=== PATIENT | female | born 1995 | race African-American/Black ===

== ENCOUNTER 2017-12-10 22:15 | Emergency (ER) | payer SELFPAY ==
[~2017-12-10] VITALS: Ht 157.5 cm; Wt 104.5 kg
[2017-12-10 22:18] VITALS: BP 118/68; TEMP 97.4
[2017-12-10 23:21] VITALS: PULSE 73
== END 2017-12-10 23:22 | disposition home or self-care (01) ==
LOC: COL.ER 22:15
DX: S60.032A Contusion of left middle finger without damage to nail, initial encounter (principal); G40.909 Epilepsy, unspecified, not intractable, without status epilepticus; J45.909 Unspecified asthma, uncomplicated; W22.8XXA Striking against or struck by other objects, initial encounter